=== PATIENT | female | born 1940 | race Caucasian/White ===

== ENCOUNTER 2023-07-31 20:47 | Emergency (ER) | payer MEDICARE, OTHER ==
[~2023-07-31] VITALS: Ht 152.4 cm; Wt 77.1 kg
[2023-07-31 21:15] VITALS: BP 154/73; PULSE 60; RESP 16; TEMP 96.7; O2SAT 100
[2023-07-31 22:27] VITALS: O2SAT 98
== END 2023-07-31 22:52 | disposition home or self-care (01) ==
LOC: MED 20:47
DX: I11.0 Hypertensive heart disease with heart failure (principal); I50.9 Heart failure, unspecified; Z90.49 Acquired absence of other specified parts of digestive tract
CPT/HCPCS: 99281